=== PATIENT | female | born 1985 | race Two or more races ===

== ENCOUNTER 2021-03-16 17:03 | Emergency (ER) | payer OTHER ==
[~2021-03-16] VITALS: Ht 162.6 cm; Wt 57.6 kg
[2021-03-16] MEDS ORDERED: CLONAZEPAM1 MG PO (19:59)
== END 2021-03-16 21:29 | disposition home or self-care (01) ==
LOC: ER 17:03
DX: F06.4 Anxiety disorder due to known physiological condition (principal)